=== PATIENT | male | born 1955 ===

== ENCOUNTER 2021-11-30 19:23 | Emergency (ER) | payer BC, OTHER ==
[2021-11-30 20:52] LABS: Absolute Lymphocytes (CBC) 0.5 K/uL (0.7-4.9); Hematocrit 41.5 % (39.6-49.0); Lymphocytes % 5.6 % (15.3-44.8); MCV 87.4 fL (80-100); MPV 7.9 fL (7.6-11.3); RBC Red Blood Cell Count 4.75 M/uL (4.33-5.43)
[2021-11-30 21:10] LABS: Albumin 3.5 g/dL (3.4-5.0); Bilirubin Total 0.7 mg/dL (0.2-1.0); Potassium 3.6 mmol/L (3.5-5.1); Protein, Total 7.4 g/dL (6.4-8.2); Troponin High Sensitivity 16.5 pg/mL (<58.9)
[2021-11-30 21:29] LABS: Urine Blood Negative (Negative); Urine Glucose Negative (Negative); Urine Protein Negative (Negative); Urine Specific Gravity 1.025 (1.005-1.030); Urine pH 5.5 (5.0-7.0)
[2021-11-30] MEDS ORDERED: ONDANSETRON 4 MG/2 ML VIAL ONE (21:36)
[2021-11-30 21:54] LABS: Urine Mucus Slight /HPF (None Seen); Urine RBC <5 /HPF (None Seen)
--- NOTE | 2021-11-30 22:02 | RAD REPORT ---
EXAM DESCRIPTION: CT - Abdomen Pelvis W Contrast - 11/30/2021 9:35 pm CLINICAL HISTORY: Abdominal pain COMPARISON: none. TECHNIQUE: Computed axial tomography of the abdomen pelvis was obtained. 100 cc Isovue-300 was admin istered intravenously. Oral contrast was not requested which limits evaluation of bowel and appendix All CT scans are performed using dose optimization technique as appropriate and may include automated exposure control or mA/KV adjustment according to patient size. FINDINGS: Small hepatic cysts The spleen, pancreas, adrenals and left kidney unremarkable. Small right renal cyst. Several gallstones. Gallbladder wall probably is mildly thickened. There is no evidence of diverticulitis. Small umbilical hernia. Normal appendix IMPRESSION: Cholelithiasis. Gallbladder wall is probably mildly which may indicate cholecystitis
--- NOTE | 2021-11-30 22:44 | EDPHYS ---
Physician Documentation [facility] Name: Jean Silva Age: 66 yrs Sex: Male : 1955 Arrival Date: 11/30/2021 Time: 19:25 Bed DIS2 Private MD: ED Physician Rowan Quinonez HPI: 11/30 20:19 This 66 yrs old Male presents to ER via Ambulatory with complaints of Abdominal Pain, sp3 Back Pain, Chest Pain > 30 y/o. 20:19 66-year-old male with a history of hypertension, hyperlipidemia, coronary artery sp3 disease status post 3 stents placed several years ago now presents with epigastric pain radiating to the his back that started shortly after eating "teriyaki chicken" that his daughter prepared who also ate and has no symptoms. Patient had 1 episode of emesis which mildly alleviated the pain but it is still there but dull in nature. Patient still has nausea. He denies any chest pain, upper back pain, shortness of breath, pain in his left shoulder, neck pain, fever, rash, syncope, near syncope, headache, neuro symptoms, or any other ROS at this time. Patient denies having kidney stones in the past and has no abdominal surgeries including gallbladder and appendix.. Historical: - Allergies: 19:47 No Known Allergies; hb - PMHx: 19:47 Hypertensive disorder; hb - PSHx: 19:47 Cardiac Stents; hb - Immunization history:: Adult Immunizations up to date. - Social history:: Smoking status: Patient denies any tobacco usage or history of. ROS: 20:22 Constitutional: Negative for fever, chills, and weight loss, Eyes: Negative for injury, sp3 pain, redness, and discharge, ENT: Negative for injury, pain, and discharge, Neck: Negative for injury, pain, and swelling, Cardiovascular: Negative for chest pain, palpitations, and edema, Respiratory: Negative for shortness of breath, cough, wheezing, and pleuritic chest pain, Back: Negative for injury and pain, MS/Extremity: Negative for injury and deformity, Skin: Negative for injury, rash, and discoloration, Neuro: Negative for headache, weakness, numbness, tingling, and seizure, Psych: Negative for depression, anxiety, suicide ideation, homicidal ideation, and hallucinations, Allergy/Immunology: Negative for hives, rash, and allergies, Endocrine: Negative for neck swelling, polydipsia, polyuria, polyphagia, and marked weight changes. 20:22 All other systems are negative. Exam: 20:23 Constitutional: This is a well developed, well nourished patient who is awake, alert, sp3 and in no acute distress. Head/Face: Normocephalic, atraumatic. Eyes: Pupils equal round and reactive to light, extra-ocular motions intact. Lids and lashes normal. Conjunctiva and sclera are non-icteric and not injected. Cornea within normal limits. Periorbital areas with no swelling, redness, or edema. ENT: Nares patent. No nasal discharge, no septal abnormalities noted. External auditory canals are clear. Oropharynx with no redness, swelling, or masses, exudates, or evidence of obstruction, uvula midline. Mucous membranes moist. Neck: Trachea midline, no thyromegaly or masses palpated, and no cervical lymphadenopathy. Supple, full range of motion without nuchal rigidity, or vertebral point tenderness. No Meningismus. Chest/axilla: Normal chest wall appearance and motion. Nontender with no deformity. No lesions are appreciated. Cardiovascular: Regular rate and rhythm with a normal S1 and S2. No gallops, murmurs, or rubs. Normal PMI, no JVD. No pulse deficits. Respiratory: Lungs have equal breath sounds bilaterally, clear to auscultation and percussion. No rales, rhonchi or wheezes noted. No increased work of breathing, no retractions or nasal flaring. Back: No spinal tenderness. No costovertebral tenderness. Full range of motion. Skin: Warm, dry with normal turgor. Normal color with no rashes, no lesions, and no evidence of cellulitis. MS/ Extremity: Pulses equal, no cyanosis. Neurovascular intact. Full, normal range of motion. Neuro: Awake and alert, GCS 15, oriented to person, place, time, and situation. Cranial nerves II-XII grossly intact. Motor strength 5/5 in all extremities. Sensory grossly intact. Cerebellar exam normal. Normal gait. 20:23 Abdomen/GI: Patient has mild tenderness to palpation epigastrically with no rebound tenderness or guarding. No CVA tenderness noted. Bowel sounds are normal.. 20:50 ECG was reviewed by the Attending Physician. EKG demonstrates normal sinus rhythm at 63 sp3 bpm with normal intervals, normal axis, normal QRS, nonspecific ST changes inferolaterally without evidence of acute ischemia or STEMI. Vital Signs: 19:45 BP 162 / 95; Pulse 78; Resp 16; Temp 97.8; Pulse Ox 100% on R/A; Weight 103.42 kg; hb Height 6 ft. 2 in. (187.96 cm); Pain 2/10; 22:20 BP 121 / 72; Pulse 69; Resp 16; Temp 98.1; Pulse Ox 98% on R/A; jb5 19:45 Body Mass Index 29.27 (103.42 kg, 187.96 cm) hb MDM: 20:12 Patient medically screened. sp3 20:23 Data reviewed: vital signs, nurses notes. ED course: 66-year-old male with epigastric sp3 pain. Differential diagnosis includes pancreatitis, gastritis, biliary pathology, acute coronary syndrome, kidney stone, esophageal reflux, functional abdominal pain. Will obtain EKG, laboratory values, CT scan of the abdomen and pelvis, and administer Zofran IV. Patient declined any pain medication stating that his pain had improved after his emesis earlier. Patient is resting comfortably and has no further questions and is in agreement with the plan.. 22:40 ED course: Patient has cholelithiasis with potentially mild gallbladder wall sp3 thickening. There is no pericholecystic fluid and laboratory values are normal. I do not believe this is coronary artery disease. Will place patient on antibiotics and have him follow-up with general surgery as an outpatient. Patient is okay with the plan and all of his pain has subsided.. 11/30 20:18 Order name: CBC with Diff; Complete Time: 21:17 sp3 11/30 20:18 Order name: CMP; Complete Time: 21:17 sp3 11/30 20:18 Order name: Lipase; Complete Time: 21:17 sp3 11/30 20:18 Order name: Urine Microscopic Only; Complete Time: 22:35 sp3 11/30 20:18 Order name: Troponin High Sensitivity; Complete Time: 21:17 sp3 11/30 21:29 Order name: Urine Dipstick-Ancillary; Complete Time: 22:35 EDMS 11/30 20:18 Order name: CT Abd/Pelvis - IV Contrast Only; Complete Time: 22:35 sp3 11/30 20:18 Order name: IV Saline Lock; Complete Time: 20:41 sp3 11/30 20:18 Order name: Labs collected and sent; Complete Time: 21:39 sp3 11/30 20:18 Order name: Urine Dipstick-Ancillary (obtain specimen); Complete Time: 21:39 sp3 11/30 20:18 Order name: EKG - Nurse/Tech; Complete Time: 20:57 sp3 Administered Medications: 21:55 Drug: Zofran (Ondansetron) 4 mg Route: IVP; Site: left antecubital; jb4 22:49 Follow up: Response: No adverse reaction bb Disposition Summary: 11/30/21 22:43 Discharge Ordered Location: Home sp3 Condition: Stable sp3 Diagnosis - Other cholelithiasis without obstruction sp3 Followup: sp3 - With: Mihir Paul MD - When: Upon discharge from the Emergency Department - Reason: Recheck today's complaints, Continuance of care Discharge Instructions: - Discharge Summary Sheet sp3 - Cholelithiasis sp3 Forms: - Medication Reconciliation Form sp3 - Thank You Letter sp3 - Antibiotic Education sp3 - Prescription Opioid Use sp3 Prescriptions: - levofloxacin 500 mg Oral Tablet - take 1 tablet by ORAL route once daily for 7 days; 7 tablet; Refills: 0, sp3 Product Selection Permitted Signatures: Dispatcher [employer] Viri Grover, RN RN Enoch Pina RN RN jb4 Rowan Quinonez MD MD sp3 Mya Walker RN bb
--- NOTE | 2021-11-30 22:44 | ER ---
Nurse's Notes [facility] Name: Jean Silva Age: 66 yrs Sex: Male : 1955 Arrival Date: 11/30/2021 Time: 19:25 Bed DIS2 Private MD: Diagnosis: Other cholelithiasis without obstruction Presentation: 11/30 19:45 Chief complaint: Upper abdominal pain and bloating that was partially relieved by hb belching and vomit x 1. Coronavirus screen: At this time, the client does not indicate any symptoms associated with coronavirus-19. Ebola Screen: No symptoms or risks identified at this time. Risk Assessment: Do you want to hurt yourself or someone else? Patient reports no desire to harm self or others. Onset of symptoms was November 30, 2021. 19:45 Method Of Arrival: Ambulatory hb 19:45 Acuity: JULISSA 3 hb Historical: - Allergies: 19:47 No Known Allergies; hb - PMHx: 19:47 Hypertensive disorder; hb - PSHx: 19:47 Cardiac Stents; hb - Immunization history:: Adult Immunizations up to date. - Social history:: Smoking status: Patient denies any tobacco usage or history of. Screenin:25 Abuse screen: Denies threats or abuse. Nutritional screening: No deficits noted. bb Tuberculosis screening: No symptoms or risk factors identified. Fall Risk None identified. Assessment: 20:25 General: Appears in no apparent distress. uncomfortable, Behavior is calm, cooperative. bb Pain: Complains of pain in abdomen. Neuro: Level of Consciousness is awake, alert, obeys commands, Oriented to person, place, time, situation. Cardiovascular: Capillary refill < 3 seconds Patient's skin is warm and dry. Respiratory: Airway is patent Respiratory effort is even, unlabored, Respiratory pattern is regular. GI: Bowel sounds present X 4 quads. Abd is soft X 4 quads Abdomen is tender to palpation X 4 quads. Derm: Skin is pink, warm \T\ dry. Musculoskeletal: Circulation, motion, and sensation intact. 22:57 Reassessment: Patient is alert, oriented x 3, equal unlabored respirations, skin bb warm/dry/pink. pt verbalized understanding of and agrees to plan of care discharge instructions given pt ambulated with steady gait to exit Patient states feeling better. Vital Signs: 19:45 BP 162 / 95; Pulse 78; Resp 16; Temp 97.8; Pulse Ox 100% on R/A; Weight 103.42 kg; hb Height 6 ft. 2 in. (187.96 cm); Pain 2/10; 22:20 BP 121 / 72; Pulse 69; Resp 16; Temp 98.1; Pulse Ox 98% on R/A; jb5 19:45 Body Mass Index 29.27 (103.42 kg, 187.96 cm) hb ED Course: 19:25 Patient arrived in ED. bp1 19:46 Triage completed. hb 19:47 Arm band placed on. hb 20:06 Rowan Quinonez MD is Attending Physician. sp3 20:25 Patient has correct armband on for positive identification. bb 20:41 CBC with Diff Sent. jb5 20:41 CMP Sent. jb5 20:41 Lipase Sent. jb5 20:42 Inserted saline lock: 20 gauge in left antecubital area, using aseptic technique. Blood jb5 collected. 21:37 CT Abd/Pelvis - IV Contrast Only In Process Unspecified. EDMS 22:43 Mihir Paul MD is Referral Physician. sp3 22:58 Mya Walker, RN is Primary Nurse. bb 22:59 No provider procedures requiring assistance completed. IV discontinued, intact, bb bleeding controlled, No redness/swelling at site. Pressure dressing applied. Administered Medications: 21:55 Drug: Zofran (Ondansetron) 4 mg Route: IVP; Site: left antecubital; jb4 22:49 Follow up: Response: No adverse reaction bb Medication: 20:25 VIS not applicable for this client. bb Outcome: 22:43 Discharge ordered by . sp3 22:59 Discharged to home ambulatory. bb 22:59 Condition: stable 22:59 Discharge instructions given to patient, Instructed on discharge instructions, follow up and referral plans. medication usage, Demonstrated understanding of instructions, follow-up care, medications, Prescriptions given X 1. 22:59 Patient left the ED. bb Signatures: Dispatcher [employer] EDPA Mya Walker, POLINA RN bb Viri Sr RN RN Enoch Pina RN RN jb4 Fabiana Brown jb5 Charissa Gomez bp1 Rowan Quinonez MD MD sp3
--- NOTE | 2021-12-01 13:05 | EKG ---
Test Date: 2021-11-30 Test Time: 20:51:20 Running Specialist: MARIELA MEASUREMENT RESULTS: Intervals: Rate: 63 MO: 140 QRSD: 102 QT: 396 QTc: 405 [place]: P: 43 MO: 140 QRS: 31 T: 56 INTERPRETIVE STATEMENTS: Normal sinus rhythm Normal ECG Compared to ECG 08/22/2014 06:39:05 Sinus bradycardia no longer present Electronically Signed On 12-01-21 13:04:35 CDT by Melvin Treviño
== END 2021-11-30 22:59 | disposition home or self-care (01) ==
LOC: ER 19:23
DX: K80.80 Other cholelithiasis without obstruction (principal); I10 Essential (primary) hypertension
CPT/HCPCS: 93005; 85025; 36415; 84484; 83690; 80053; 74177; 96374; 99284; Q9967; J2405; 81003; 81015